=== PATIENT | female | born 1985 | race Caucasian/White ===

== ENCOUNTER 2019-01-13 08:55 | Emergency (ER) | payer OTHER ==
[~2019-01-13] VITALS: Ht 160 cm; Wt 62.5 kg
[2019-01-13 08:57] VITALS: Ht 160 cm; Wt 62.5 kg
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
[2019-01-13] MEDS ORDERED: LORAZEPAM 2 MG INJ IM ONE ×2 (10:00)
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
[2019-01-13] MEDS ORDERED: CEPH-443 PO (11:43)
[2019-01-13] MEDS ORDERED: LIDOCAINE 1% (MDV) 20 ML INJ ONE (11:50)
[2019-01-13] MEDS ORDERED: CEFTRIAXONE 1 GM INJ IM ONE (12:00)
[2019-01-13 13:45] VITALS: BP 124/67; PULSE 79; RESP 20
== END 2019-01-13 13:45 | disposition home or self-care (01) ==
LOC: FTE 08:55 → E/R 13:45
DX: N39.0 Urinary tract infection, site not specified (principal); F15.10 Other stimulant abuse, uncomplicated; F99 Mental disorder, not otherwise specified
CPT/HCPCS: 80053; 80307; 81001; 81025; 84703; 85025; 96372; J0696; J2060; Z7502; Z7610; 81003

== ENCOUNTER 2019-01-13 14:08 | Emergency (ER) | payer OTHER ==
[~2019-01-13] VITALS: Ht 162.6 cm; Wt 62.6 kg
[~2019-01-13 14:08] MED LIST: CEPH-443 PO
[2019-01-13 14:17] VITALS: BP 109/64; PULSE 76; RESP 18; Ht 162.6 cm; Wt 62.6 kg
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
== END 2019-01-13 18:59 | disposition home or self-care (01) ==
LOC: E/R 14:08
DX: F15.10 Other stimulant abuse, uncomplicated (principal); M54.5 Low back pain
CPT/HCPCS: Z7502; Z7610; 99283